=== PATIENT | female | born 1995 | race Caucasian/White ===

== ENCOUNTER 2025-02-17 08:50 | Emergency (ER) | payer OTHER, SELFPAY ==
--- NOTE | ~2025-02-17 | XR_ITS ---
XR thoracic spine 3V 02/17/2025 09:41 Indication: Thoracic spine pain Procedure: 3 views thoracic spine Comparison: No prior studies for comparison. Findings: There is dextroscoliosis of the thoracic spine measuring 20 degrees. Vertebral body heights are maintained. No fracture, subluxation or dislocation. There is calcified granuloma right lower lobe. Heart size normal. Pedicles intact. No paraspinal soft tissue abnormality. Impression: 1: Dextroscoliosis measuring 20 degrees centered at T8. Reviewed, dictated and finalized at location O. Impression: 1: Dextroscoliosis measuring 20 degrees centered at T8.
--- NOTE | ~2025-02-17 | XR_ITS ---
EXAMINATION: [id number] DATE: 02/17/2025 09:39 INDICATION: Posterior and anterior lower rib pain after adjusted by chiro TECHNIQUE: Frontal and lateral images of the chest were obtained. 3 images of the right ribs were obtained. COMPARISON: None available FINDINGS: No rib fractures identified. No pneumothorax. No focal infiltrates, pleural effusion or pulmonary edema. Cardiomediastinal silhouette is normal. Mild to moderate dextroconvex curvature of the thoracic spine. IMPRESSION: 1. No rib fracture or acute cardiopulmonary disease. If symptoms persist or worsen, consider a short-term follow-up study or additional imaging for further assessment. Reviewed, dictated and finalized at location Q. IMPRESSION: 1. No rib fracture or acute cardiopulmonary disease. If symptoms persist or worsen, consider a short-term follow-up study or additio nal imaging for further assessment.
[2025-02-17 08:59] VITALS: BP 112/78; PULSE 96; RESP 16; TEMP 36.1; O2SAT 100
--- OUTSIDE RECORDS SUMMARY | 2025-02-17 09:03 | XMS_ITS | Clinical Summary ---
Author Organization [facility] Address [address] [place] [address] Care Team Providers Care Gas Meter Installer Name Role Phone Bhavna Phan MD Primary Care Provider + Allergies Active Allergy Reactions Criticality Noted Date Comments Buspirone Angioedema High 12/31/2016 Lorazepam Other (See comments) High 12/31/2016 Hallucinations, talking out of her head. Medications famotidine (PEPCID) 20 mg tablet Take 1 tablet (20 mg total) by mouth 2 (two) times a day 30 tablet 9 Active ondansetron ODT (ZOFRAN-ODT) 4 mg disintegrating tablet Dissolve 1 tablet oral every 4 hours as needed for nausea or vomiting. 15 tablet 9 Active methocarbamoL (ROBAXIN) 500 mg tablet Take 1 tablet (500 mg total) by mouth 3 (three) times a day as needed for muscle spasms 30 tablet 5 Active Active Problems Problem Noted Date Diagnosed Date Epigastric pain 10/16/2018 Overview (10/16/2018): Added automatically from request for surgery Vomiting without nausea 10/16/2018 Overview (10/16/2018): Added automatically from request for surgery Encounters Date Type Department Care Team Description 02/10/2025 9:58 AM CDT - 02/10/2025 11:47 AM CDT Emergency [facility] Emergency Department [address] [place] [address] Edy Kay PA Back muscle spasm (Primary Dx); Muscle strain of upper back Discharge Disposition: Discharge to home or self care 02/10/2025 9:41 AM CDT - 02/10/2025 11:59 PM CDT Hospital Encounter [facility] Emergency, Room R Discharge Disposition: Discharge to home or self care from Last 3 Months Surgical History Surgery Date Site/Laterality Comments COLONOSCOPY UPPER GASTROINTESTINAL ENDOSCOPY Medical History Medical History Date Comments GERD (gastroesophageal reflux disease) Family History Medical History Relation Name Comments Colon polyps Father Colon cancer Father's Brother Relation Name Status Comments Father Alive Father's Brother (Age 57) Social History Tobacco Use Types Packs/Day Years Used Date Smoking Tobacco: Every Day Cigarettes 1 10 Smokeless Tobacco: Former Alcohol Use Standard Drinks/Week Comments Not Currently 0 (1 standard drink = 0.6 oz pur e alcohol) Personal Safety Answer Date Recorded Have you ever been in or are you currently in a harmful physical or emotional relationship or is someone making you feel afraid or unsafe? 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 Gender Identity Not on file Sexual Orientation Not on file Obstetrics History Last Filed Vital Signs Vital Sign Reading Time Taken Comments Blood Pressure 107/74 02/10/2025 11:30 AM CDT Pulse 59 02/10/2025 11:40 AM CDT Temperature 36.8 C (98.2 F) 02/10/2025 10:02 AM CDT Respiratory Rate 16 02/10/2025 10:02 AM CDT Oxygen Saturation 97% 02/10/2025 11:40 AM CDT Inhaled Oxygen Concentration - - Weight 59 kg (130 lb) 02/10/2025 10:02 AM CDT Height 170.2 cm (5' 7) 02/10/2025 10:02 AM CDT Body Mass Index 20.36 02/10/2025 10:02 AM CDT Plan of Treatment Health Maintenance Due Date Last Done Comments Cervical Cancer Screening 1993 Depression Screening 1993 Hepatitis C Screening 1993 Varicella Vaccines (1 of 2 - 13+ 2-dose series) 2006 Hepatitis B Screening 2011 Regular Well Visit/Exam 18-64 2011 Pneumococcal vaccine <65 (2 of 2 - PCV) 11/10/2013 0 11/10/2012 HPV Vaccines (1 - 3-dose SCDM series) 02/01/2020 DTaP/Tdap/Td Vaccine (3 - Td or Tdap) 11/10/2022, 11/01/2008 Influenza Vaccine (#1) 2025 03/21/2012 Insurance [employer] COVENTRY HMO/POS Care Teams Gas Meter Installer Relationship Specialty Start Date End Date Bhavna Phan MD [facility] [address] [address] PCP - General Family Medicine 02/10/25
--- OUTSIDE RECORDS SUMMARY | 2025-02-17 09:03 | XMS_ITS | Clinical Summary ---
Author Organization [facility] Address [address] [place] [id number] Care Team Providers Care Commercial Baker Helper Name Role Phone Unavailable Primary Care Provider Unavailabl e Social History Tobacco Use Types Packs/Day Years Used Date Smoking Tobacco: Never Assessed Comments Unknown Sex and Gender Information Value Date Recorded Sex Assigned at Not on file Legal Sex Female 11:37 AM CDT Gender Identity Not on file Sexual Orientation Not on file Plan of Treatment Health Maintenance Due Date Last Done Comments HPV VACCINES (1 - 3-dose series) 02/01/2008 HEPATITIS B VACCINES (1 of 3 - 19+ 3-dose series) 02/01/2012 HPV/Cotest (21-29) 2014 DTAP/TDAP/TD VACCINES (3 - Td or Tdap) 11/10/2022, 11/01/2008 CERVICAL CANCER SCREENING 2023 HPV/Cotest (30-65) 2023 PAP SMEAR 2023 INFLUENZA VACCINE (#1) 2025 03/21/2012 Insurance [employer] CHOICE POS II
--- NOTE | 2025-02-17 09:17 | ED.ABDPAIN ---
HPI - Abdominal Pain General Chief Complaint: Abdominal Pain Stated Complaint: right side/back pain Time Seen by Provider: 02/17/25 09:17 Source: patient Mode of arrival: ambulatory Limitations: no limitations History of Present Illness HPI narrative: 30 yo F presents with c/o pain to R ribs. feels like a pressure. Also reports some tenderness to mid back near shoulder blades. Denies injury. Test see a chiropractor for adjustments. Pain started a few days after her last adjustment. No ABD pain. Denies N/V. Afebrile. Taking ibuprofen for pain. All systems reviewed and negative except as noted above. Related Data Allergies Allergy/AdvReac Type Severity Reaction Status Date / Time buspirone Allergy Mild Rash Verified 02/17/25 09:18 lorazepam (From Ativan) Allergy Mild Rash Verified 02/17/25 09:18 PMFSH Comments At time of signature, agree with nursing past medical, surgical, social and family history. There is no relevant family history pertinent to the presenting complaint. Exam Narrative: GENERAL: This is a well-nourished, well-developed patient, in no apparent distress. HEAD: normocephalic, atraumatic. EYES: PERRL. Sclera clear/white. Vision is grossly intact. EARS: External ears normal NOSE: External nose normal NECK: Neck supple, non-tender without lymphadenopathy, masses or thyromegaly. CARDIOVASCULAR: Regular rate and rhythm without murmurs, gallops, or rubs. RESPIRATORY: Clear to auscultation. Breath sounds equal bilaterally. No wheezes, rales, or rhonchi. SKIN: warm, Dry, intact with no suspicious lesions or rash, good texture and turgor. NEURO: awake, alert, and oriented to person, place and time. There were no obvious focal neurologic abnormalities. EXTREMITIES: No joint tenderness, effusion, or edema noted. No calf tenderness. Negative Homans sign bilaterally. BACK: Tender T6, T7. No deformity. Course Course Level of Care: Express Care Visit Vital Signs Vital signs: Vital Signs Temperature 36.1 C L 02/17/25 08:59 Pulse Rate 96 02/17/25 08:59 Respiratory Rate 16 02/17/25 08:59 Blood Pressure 112/78 02/17/25 08:59 Pulse Oximetry 100 02/17/25 08:59 Oxygen Delivery Room Air 02/17/25 08:59 Temperature 36.1 C L 02/17/25 08:59 Pulse Rate 96 02/17/25 08:59 Respiratory Rate 16 02/17/25 08:59 Blood Pressure 112/78 02/17/25 08:59 Pulse Oximetry 100 02/17/25 08:59 Oxygen Delivery Room Air 02/17/25 08:59 Review MDM - Abdominal Pain MDM Narrative Medical decision making narrative: Discussed x-ray results with patient. Rib pain/pressure could be related to dextroscoliosis at T8. Recommend [id number] pain medications, follow-up with primary care physician for further evaluation. Patient agrees with plan of care. Imaging Data Radiologist's impression: ITS Impressions Ribs w/Chest X-Ray 02/17/25 09:44 IMPRESSION: 1. No rib fracture or acute cardiopulmonary disease. If symptoms persist or worsen, consider a short-term follow-up study or additional imaging for further assessment. Thoracic Spine X-Ray 02/17/25 09:45 Impression: 1: Dextroscoliosis measuring 20 degrees centered at T8. Discharge Plan Discharge Clinical Impression: Rib pain on right side, Dextroscoliosis of thoracic spine Patient Disposition: Home Condition: Stable Instructions: Thoracic Pain (ED) Additional Instructions: The x-ray of your thoracic spine shows dextroscoliosis. This could be causing pain to her right ribcage. Discuss this further with your primary care physician. Continue muscle relaxant and steroids prescribed by her primary care physician. Alternate between ice and heat. Do stretching exercises as tolerated. follow-up with your chiropractor at scheduled appointment today. Patient Language: Maltese Follow-up/Referrals: PHYSICIAN NOT ON STAFF,NONSTAFF [Primary Care Provider] Time of Disposition: 10:02
== END 2025-02-17 10:09 | disposition home or self-care (01) ==
PROVIDERS: Emergency Provider Nurse Practitioner Family
DX: R07.81 Pleurodynia (principal); M41.84 Other forms of scoliosis, thoracic region
CPT/HCPCS: 71101; 72072; 99204; G0463

== ENCOUNTER 2025-04-07 15:55 | Emergency (ER) | payer OTHER, SELFPAY ==
--- OUTSIDE RECORDS SUMMARY | 2014-02-09 16:42 | XMS_ITS | Continuity of Care Document ---
Author Organization [facility] Address [address] [place] [address] Phone Care Team Providers Care Weights And Measures Sealer Name Role Phone Giorgi Jones MD Unavailable Unavailable Allergies, Adverse Reactions, Alerts Substance Reaction Status Criticality No Known Allergies Active No Inform ation Medications Medication Instructions Dosage Effective Dates (start - stop) Status Comments No Drug Therapy Prescribed Advance Directives Directive Yes / No Effective Date File Name No Information Encounters Encounter Description Practice Location Reason(s) For Visit Diagnoses Date Provider Providers Copied on Encounter [facility], [address], [place], [place], [id number], tel:[phone] [facility] [place] No Information Karen Rand. [address], [facility] [address] [address], . tel:[phone] [facility], [address], [place], [address], tel:[phone] [facility] No Information Karen Rand. [address], [facility] [address], [place], [place], [facility], . tel:[employer] [phone] Referring Provider: Nilson Tierney, [address] [facility] [address], [place], [place], [facility]. tel:[phone] [facility], [address], [place], [place], [address], tel:[phone] [facility] Kidney stones Karen Rand. [address], [address], [place], [address], . tel:[phone] Family History Family Member Type Diagnosis Age At Onset No Information Payers Payer name Insurance type Covered libertarian ID Authoriza tion(s) No Information Social History Type Description Quantity Date Captured Comments Sex Female Smoking Status No Information Chief Complaint And Reason For Visit No Information Reason For Referral Reason For Referral No Information History Of Present Illness Encounter Date Complaint History Of Prese nt Illness No Information Functional Status Date Functional Assessmen t No Information Medications Administered Medication Instructions Dosage Effective Dates (start - stop) Status Comments No Drug Therapy Prescribed Instructions Date Instruction Additional Infor mation No Information Assessments Type Assessment Date No Information Patient Care Teams Name Effective Dates (start - stop) Status Members No Information
--- OUTSIDE RECORDS SUMMARY | 2014-02-09 16:42 | XMS_ITS | Continuity of Care Document ---
Author Organization [facility] Address [address] [place] [address] Phone Care Team Providers Care Harbor Tug Captain Name Role Phone Giorgi Jones MD Unavailable [...] Diagnoses Date Provider Providers Copied on Encounter [employer] [employer], [address], [place], [place], [address], tel:[phone] [facility] [place] No Information Karen Rand. [address] [address], [facility] [address] [place] [address], . tel:[phone] [employer], [address], [place], [address], tel:[phone] [facility] No Information Karen Rand. [address] [address], [facility] [address], [place], [place], [facility], . tel:[phone] Referring Provider: Nilson Tierney, [address] [facility] [address], [place], [place], [facility]. tel:[phone] [employer], [address], [place], [place], [address], tel:[phone] [facility] Kidney stones Karen Rand. [address] [address], [address], [place], [address], . tel:[phone] Family History Family Member Type Diagnosis Age At Onset No Information Payers Payer name Insurance type Covered green party ID Authoriza tion(s) No Information Social History [...]
--- OUTSIDE RECORDS SUMMARY | 2023-10-18 03:35 | XMS_ITS ---
Author Organization [facility]ILL[facility]AC[facility] [employer] Address [address] [place] [address] Care Team Providers Care Brick Kiln Worker Name Role Phone Bhavna Phan Primary Care Provider REASON FOR VISIT Outreach - Successful Encounters Encounter Location Date Provider Diagnosis [address] [address] 10/18/2023 Bhavna Phan PLAN OF TREATMENT No Information Progress Notes * ANDRADE, AnkitaDOB:[birth year] (28 yo F)Acc No.[id number]:10/18/2023 Patient: Ankita ANDRADE :1995 Age:28 Y Sex:Female Address:[address] [place] [address] * true * Date:
--- OUTSIDE RECORDS SUMMARY | 2023-10-24 01:49 | XMS_ITS ---
Author Organization [facility]ILLING FACILITY [employer] [facility] Address [address] [place] [address] Care Team Providers Care Welder Production Line Gas Name Role Phone Bhavna Phan Primary Care Provider [phone] REASON FOR VISIT PRTL: Physical Encounters Encounter Location Date Provider Diagnosis [address] [address] 10/24/2023 Bhavna Phan PLAN OF TREATMENT No Information Progress Notes * Ankita ANDRADEDOB:[birth year] (28 yo F)Acc No.[id number]:10/24/2023 Patient: Ankita ANDRADE :1995 Age:28 Y Sex:Female Address:[facility] [place] [address] Subjective: * Chief Complaints: * PRTL: Physical * Medical History: * Surgical History: * Hospitalization/Major Diagno stic Procedure: * Medications: Objective: Assessment: Plan: * Treatment: * Procedure Codes: * true * Date:
--- OUTSIDE RECORDS SUMMARY | 2023-12-18 06:54 | XMS_ITS ---
Author Organization [facility]ILL[facility]AC[facility] [facility] Address [address] [place] [address] Care Team Providers Care Production Lapping Machine Operator Name Role Phone Bhavna Phan Primary Care Provider REASON FOR VISIT PRTL: Ear ache, sore throat, stuffiness Encounters Encounter Location Date Provider Diagnosis [facility] [address] [place] [address] 12/18/2023 Bhavna Phan PLAN OF TREATMENT No Information Progress Notes * Ankita ANDRADEDOB:[birth year] (28 yo F)Acc No.[id number]:12/18/2023 Patient: Ankita ANDRADE :1995 Age:28 Y Sex:Female Address:[facility] [place] [address] Subjective: * Chief Complaints: * PRTL: Ear ache, sore throat, stuffiness * Medical History: * Surgical History: * Hospitalization/Major Diagno stic Procedure: * Medications: Objective: Assessment: Plan: * Treatment: * Procedure Codes: * true * Date:
--- OUTSIDE RECORDS SUMMARY | 2024-03-02 09:00 | XMS_ITS ---
Author Organization BILLING FACILITY [employer] Address [address] [place] [address] Care Team Providers Care Detention Sergeant Name Role Phone Bhavna Phan Primary Care Provider ALLERGIES Allergen (clinical drug ingredient) Drug/Non Drug Allergy documented on EMR Reaction Allergy Type Onset Date Status lorazepam Ativan hallucinations Drug Allergy Ac tive BuSpar face swelling Drug Allergy Act naye RESULTS Component Value Reference Range Notes Chlamydia trachomatis, Neiss eria gonorrhoeae, and Trichomonas vaginalis, ABHIJIT ([id number]) Reviewed date:03/06/2024 01:12:12 PM Interpretation: Performing Lab:[facility], [address] [place] [id number], Phone - [phone], Director - MDBejuan Notes/Report: Chlamydia by ABHIJIT Negative Negative Gonococcus by ABHIJIT Negative Negative Trich vag by ABHIJIT Negative Negative Pap age-based (with age-base d GC/CT screen) ([id number]) Reviewed date:03/06/2024 01:12:12 PM Interpretation: Performing Lab:[facility], [address] [place] [id number], Phone - [phone], Director - MDBendre Notes/Report: Clinical Information:[id number] Clinical Information:[id number] Age Gdln ACOG Testing 30-65 DIAGNOSIS: NEGATIVE FOR IN TRAEPITHELIAL LESION OR MALIGNANCY. Specimen adequacy: Satisfactory for evaluation. Endocervical and/or squamous metaplastic cells (endocervical component) are present. Clinician provided ICD10: Z1 2.4 Performed by: Bhavna Gibson , Fiber Locking Supervisor (ASCP) . . Note: The Pap smear is a screening test designed to aid in the detection of premalignant and malignant conditions of the uterine cervix. It is not a diagnostic procedure and should not be used as the sole means of detecting cervical cancer. Both false-positive and false-negative reports do occur. . Test Methodology: This liquid based ThinPrep(R) pap test was screened with the use of an image guided system. HPV Aptima Negative Negative This nucleic acid amplification test detects fourteen high-risk HPV types (16,18,31,33,35,39,45,51,52,56,5 8,59,66,68) without differentiation. HPV Genotype Reflex Criteria not met, HPV Genotype not performed. REASON FOR VISIT dysuria MEDICATIONS Medication SIG (Take, Route, Frequency, Duration) Notes Start Date End Date Status valACYclovir HCl 1 GM 2 tablets Orally e very 12 hours for 1 day 03/28/2022 Not-Taking Amoxicillin 500 MG 1 capsule Orally tuyet ry 8 hrs for 10 days 06/25/2023 Active SOCIAL HISTORY Tobacco Use: Social History Observation Description Date Details (start date - stop date) Current Smoker 07/03/2009 - NA Sex Assigned At : Social History Observation Description Sex Assigned At Unknown Tobacco Use/Smoking Question Answer Notes Are you a current user When did you start using? 07/03/2009 How often do you smoke cigarettes? every day How many cigarettes a day do you smoke? 11-20 How soon after you wake up do you smoke your fir st cigarette? 6-30 minutes Are you interested in quitting? Not ready to colby t Alcohol Questionnaire Question Answer Notes Did you have a drink contain ing alcohol in the past year? Yes How often did you have a dri nk containing alcohol in the past year? 2 to 4 times a month (2 points) How many drinks did you have on a typical day when you were drinking in the past year? 3 or 4 drinks (1 point) How often did you have 6 or more drinks on one occasion in the past year? Never (0 point) Points 3 Interpretation Positive PROBLEMS Problem Type ICD Code Onset Dates Problem Status W/U Status Risk SNOMED Code Notes Problem Exposure to asbestos (Z77.090) Active confirmed 128522384 Problem Pulmonary nodule (R91.1) Active confirmed 319491138 Problem Endometriosis (N80.9) Active confirmed 676459890 VITAL SIGNS Temperature 98.9 degrees Fahrenheit 03/02/20 24 Heart Rate 84 /min 03/02/2024 Oximetry 99% % 03/02/2024 Blood pressure systolic 102 mm Hg 03/02/20 24 Blood pressure diastolic 68 mm Hg 024 Respiratory Rate 20 /min 03/02/2024 Weight 140.0 lbs 03/02/2024 Height 67 in 03/02/2024 BMI 21.92 03/02/2024 Weight-kg 63.5 kg 03/02/2024 Encounters Encounter Location Date Provider Diagnosis [facility] [address] [place] [address] 03/02/2024 Bhavna Phan Dysuria R30.0 ; Well woman exam with routine gynecological exam Z01.419 ; Screening for cervical cancer Z12.4 ; LLQ abdominal pain R10.32 ; Endometriosis N80.9 ; Pulmonary nodule R91.1 and Exposure to asbestos Z77.090 ASSESSMENTS Encounter Date Diagnosis Assessment Notes Treatment Notes Treatment Clinical Notes Section Notes 03/02/2024 Dysuria (ICD-10 - R30.0) 03/02/2024 Well woman exam with routine gynecological exam (ICD-10 - Z01.419) Routine age appropriate anticipatory guidance was given, including discussion of recommended screening tests and immunizations. I will call her with pap and STD results. She declined labs for HIV, Hep C, syphilis testing but can return for labs if she changes her mind. She will get a pelvic ultrasound but I discussed signs of worsening or acute symptoms and when it would be appropriate to call me versus going to the emergency room in the interim. I recommend a CT of chest to follow up the pulmonary nodule seen incidentally on CT abdomen from ER and we'll get this arranged as well. She voiced understanding and agreement with plan. Questions were answered to satisfaction. 03/02/2024 Screening for cervical cancer (ICD-10 - Z12.4) 03/02/2024 LLQ abdominal pain (ICD-10 - R10.32) 03/02/2024 Endometriosis (ICD-10 - N80.9) 03/02/2024 Pulmonary nodule (ICD-10 - R91.1) 03/02/2024 Exposure to asbestos (ICD-10 - Z77.090) PLAN OF TREATMENT No Information Progress Notes * Ankita ANDRADEDOB:[birth year] (29 yo F)Acc No.[id number]:03/02/2024 Patient: Ankita ANDRADE Provider: Bhavna Phan MD :1995 Age:29 Y Sex:Female Date:03/02/2024 Address:[facility] [address] [place] [address] Subjective: * Chief Complaints: * Dysuria * HPI: Depression/Anxiety Screening: Here with mild dysuria for the past few days and pain with intercourse. She denies vaginal discharge, fever, abdominal or flank pain. Her cycle is always irregular and she states she was told years ago she has endometriosis. She continues to have dysmenorrhea but does not want OCP as she had side effects from this in the past. She is overdue for Pap smear. She is okay with an accidental . She denies any concerns for STD from her standpoint, but is okay with testing. She has had ER visits in the past for abdominal pain and had a CT scan of her abdomen in 2018 that I can see in [employer] that incidentally noted a 7 mm pulmonary nodule in the right lower lobe. She states she was never informed of this. 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 PHQ-2 (2015 Edition)* Little interest or pleasure in doing things? Not at all Feeling down, depressed or hopeless? Not at all Total score: 0 Depression Screening: CHUCKIE-7 (2018 Edition) Feeling nervous, anxious, or on edge Not at all Not being able to stop or control worrying Not at all Worrying too much about different things Not at all Trouble relaxing Not at all Being so restless that it is hard to sit still Not at all Becoming easily annoyed or irritable Not at all Feeling afraid as if something awful might happen Not at all Total CHUCKIE-7 Score 0 Interpretation of Total (0 to 4) No Anxiety * ROS: General/Constitutional: General as per HPI. * Medical History: * OB History: Total pregnancies 2. Total living children 1. Miscarriage(s) 1, at age 13. # 1: normal spontaneous vaginal delivery () 2012, female, term. * Surgical History: colonoscopy 10/10/2017colonoscopy 03/17/2010endoscopy small bowel w/ileum 03/17/2010pr closed rx nose fracture 2005 * Hospitalization/Major Diagno stic Procedure: stomach issues kept for a week fluid sac on stomach 2015 * Social History: Tobacco Use: Tobacco Use/Smoking Are you a current user When did you start using? 07/03/2009 How often do you smoke cigarettes? every day How many cigarettes a day do you smoke? 11-20 How soon after you wake up do you smoke your first cigarette? 6-30 minutes Are you interested in quitting? Not ready to quit Habits (drugs/alcohol/caffeine): Alcohol Questionnaire Did you have a drink containing alcohol in the past year? Yes How often did you have a drink containing alcohol in the past year? 2 to 4 times a month (2 points) How many drinks did you have on a typical day when you were drinking in the past year? 3 or 4 drinks (1 point) How often did you have 6 or more drinks on one occasion in the past year? Never (0 point) Points 3 Interpretation Positive * Medications: TakingAmoxicillin 500 MG Capsule 1 capsule Orally every 8 hrs Taking Amoxicillin 500 MG Capsule 1 capsule Orally every 8 hrs Not-TakingvalACYclovir HCl 1 GM Tablet 2 tablets Orally every 12 hours Not-Taking valACYclovir HCl 1 GM Tablet 2 tablets Orally every 12 hours * Allergies: BuSpar: face swelling - Allergy - Criticality HighAtivan: hallucinations - Side Effects - Criticality Highno[Allergies Verified] Objective: * Vitals: Temp:98.9F, HR:84, Oxygen sat:99%, BP:102/68mm Hg, RR:20/min, Wt:140.0lbs, Wt Chg: -8 lbs, Wt Chg %: -5.41%, Ht:67in, BMI:21.92, .LMP:01/24/2024, Wt-k.5 kg. * Examination: General Examination *: GENERAL APPEARANCE: alert and oriented, no acute distress, pleasant, well nourished. NECK/THYROID: neck supple, no thyromegaly. LYMPH NODES: no anterior cervical adenopathy. HEART: S1/S2 normal, regular rate and rhythm, no murmurs, no rubs, no gallops. LUNGS: clear to auscultation, good air movement, no respiratory distress. ABDOMEN: soft, non-tender, normal bowel sounds, non-distended, no CVA or suprapubic tenderness. FEMALE GENITOURINARY: external genitalia unremarkable, vaginal mucosa normal, cervix without lesions/non-tender, bimanual exam unremarkable. SKIN: Warm and dry, good turgor, no rashes, no suspicious lesions. EXTREMITIES: no edema, capillary refill normal. PERIPHERAL PULSES: 2+ throughout. Assessment: * Assessment: 1. Well woman exam with routine gynecological exam - Z01.419 (Primary) 2. Dysuria - R30.0 3. Screening for cervical cancer - Z12.4 4. LLQ abdominal pain - R10.32 5. Endometriosis - N80.9 6. Pulmonary nodule - R91.1 7. Exposure to asbestos - Z77.090 Plan: * Treatment: 2. Dysuria LAB: Chlamydia trachomatis, Neisseria gonorrhoeae, and Trichomonas vaginalis, ABHIJIT ([id number]) (Collection Date & Time - 03/02/2024) Value Reference Range Chlamydia by ABHIJIT Negative Negative - * Gonococcus by ABHIJIT Negative Negative - * Trich vag by ABHIJIT Negative Negative - * I spoke with the patient abo ut her test results. She is now 100% pain-free and plans on canceling the ultrasound, currently scheduled for Saturday. She will call to cancel this and will check on the scheduling and approval for the CT of her chest as I recommend she still get this. She voiced understanding and agreement with plan.This lab was reviewed by Bhavna Phan on 03/06/2024 at 13:12 PM MDT ?LAB: Urinalysis, Routine ([id number]) (Ordered for 03/02/2024) (Collection Date & Time - 03/02/2024)* Value Reference Range WBC neg * Appearance yellow * Bilirubin neg * Glucose neg * Ketones neg * Nitrite, Urine 0.2 * Occult Blood neg * pH 6.5 * Protein neg * Specific [place] 1.010 * Urine-Color yellow ?LAB: Test, Urine (Ordered for 03/02/2024) (Collection Date & Time - 03/02/2024)??Negative* Value Reference Manager Intensive Care Unit TS 3.??Screening for cervical cancer?LAB: Pap age-based (with age-based GC/CT screen) () (Collection Date & Time - 03/02/2024)* Value Reference Range HPV Aptima Negative Negative - * . . - * Age Gdln ACOG Testing 30-65 - * I spoke with the patient abo ut her test results. She is now 100% pain-free and plans on canceling the ultrasound, currently scheduled for Saturday. She will call to cancel this and will check on the scheduling and approval for the CT of her chest as I recommend she still get this. She voiced understanding and agreement with plan.This lab was reviewed by Bhavna Phan on 03/06/2024 at 13:12 PM MDT 4.??LLQ abdominal pain?Imaging: US PELVIC/TRANSVAGINAL ([id number])5.??Endometriosis?Imaging: US PELVIC/TRANSVAGINAL ([id number])6.??Pulmonary nodule?Imaging: CT CHEST WITHOUT CONTRAST* [facility] 7.??Exposure to asbestos?Imaging: CT CHEST WITHOUT CONTRAST* [facility] * Procedure Codes: Q0091 Screening Papanicolaou smear; obtaining, preparing, and conveyance of cervical or vaginal smear to laboratory * Billing Information: * Visit Code: [id number] Prev visit est age 18 - 37 comprehensive exam. * Procedure Codes: Q0091 Screening Papanicolaou smear; obtaining, preparing, and conveyance of cervical or vaginal smear to laboratory. * Sign off status: Completed true * Provider: Bhavna Phan MD Date: 03/02/2024 History and Physical Notes * HPI (History of Present Illness) Category Sub-Category Detail Notes Category Not es Depression/Anxiety Screening PHQ-2 (2015 Edition)* Little interest or pleasure in doing things?: Not at all Feeling down, depressed or hopeless?: No t at all Total score:: 0 Depression Screening CHUCKIE-7 (2018 Edition) Feelin g nervous, anxious, or on edge: Not at all Not being able to stop or control worryi ng: Not at all Worrying too much about different things : Not at all Trouble relaxing: Not at all Being so restless that it is hard to sit still: Not at all Becoming easily annoyed or irritable: No t at all Feeling afraid as if something awful jose ht happen: Not at all Total CHUCKIE-7 Score: 0 Interpretation of Total: (0 to 4) No Anx iety Examination Category Sub-Category Detail Notes Category Not es General Examination * GENERAL APPEARANCE: alert and oriented, no acute distress, pleasant, well nourished NECK/THYROID: neck supple, no thyr omegaly LYMPH NODES: no anterior cervical adenopathy SKIN: Warm and dry, good t urgor, no rashes, no suspicious lesions HEART: S1/S2 normal, regula r rate and rhythm, no murmurs, no rubs, no gallops LUNGS: clear to auscultatio n, good air movement, no respiratory distress ABDOMEN: soft, non-tender, no rmal bowel sounds, non-distended, no CVA or suprapubic tenderness FEMALE GENITOURINARY: external genitalia unremarkable, vaginal mucosa normal, cervix without lesions/non-tender, bimanual exam unremarkable EXTREMITIES: no edema, capillary refill normal PERIPHERAL PULSES: 2+ throughout
[2025-04-07 16:00] VITALS: BP 118/82; PULSE 101; RESP 16; TEMP 37.1; O2SAT 99
--- NOTE | 2025-04-07 16:35 | ED.LOWEXIN ---
HPI - Extremity Injury (Lower) General Chief Complaint: Extremity Injury, Lower Stated Complaint: Toe Injury Time Seen by Provider: 04/07/25 16:35 Source: patient Mode of arrival: ambulatory Limitations: no limitations History of Present Illness HPI Narrative: 30 year old female who presents to [facility] care with complaints of playing with dog on Saturday evening with Darnell ball and it hit her right great toe. She reports that she has some swelling and discomfort to the toe around nail bed and sides of toe and noted today that she has red streak running up her foot. Patient reports that tissue around the nail bed is tender and to the sides of her right great toe, patient has gel nail chilean to toenail. Patient reports that she has been applying ice to her toe and has been taking Ibuprofen for her discomfort. MD complaint: other (toe pain and swelling) Onset (ago): day(s) (2 days) Injury: Right: toes (right great toe) Type of Injury: blunt Place: street/outdoors Severity: moderate Exacerbating factors: movement and palpation Treatments prior to arrival: cold therapy and NSAIDS Related Data Allergies Allergy/AdvReac Type Severity Reaction Status Date / Time buspirone Allergy Mild Rash Verified 02/17/25 09:18 lorazepam (From Ativan) Allergy Mild Rash Verified 02/17/25 09:18 Review of Systems Review of Systems: CONSTITUTIONAL: Denies fever, chills, or sweats. EYES: Denies visual changes, redness, or discharge. ENT: Denies rhinorrhea, congestion, sore throat, or otalgia. CARDIOVASCULAR: Denies chest pain, palpitations, or edema. RESPIRATORY: Denies cough or dyspnea. GASTROINTESTINAL: Denies abdominal pain, nausea, vomiting, or diarrhea. GENITOURINARY: Denies dysuria or hematuria. SKIN: Denies rash or itching. reports red streak noted up her right foot above great toe MUSCULOSKELETAL: Denies back pain, positive for some swelling and redness to right great toe around nail bed, or myalgia. NEUROLOGIC: Denies headache, numbness, or weakness. PSYCHIATRIC: Denies anxiety or depression. All systems reviewed & are unremarkable except as noted in HPI and below PMFSH Past Medical History Medical History (Updated 04/08/25 @ 10:17 by Brittney Sharpe NP) Scoliosis Social History Social History (Updated 10/16/25 @ 10:20 by Brittney Sharpe NP) Gender identity (if verbalized by the patient): Female Comments At time of signature, agree with nursing past medical, surgical, social and family history. There is no relevant family history pertinent to the presenting complaint Exam Narrative: GENERAL: Well-appearing, well-nourished, and in no acute distress. HEAD: Normocephalic, atraumatic. EYES: PERRLA and EOMI. ENT: Nares clear, no rhinorrhea or epistaxis. Mucous membranes moist.TM's normal throat pink with no redness or swelling NECK: Supple. no lymphadenopathy CHEST: Clear to auscultation. No respiratory distress. no cough noted SAO2 99% on room air HEART: Regular rate and rhythm. No murmur heard. Normal peripheral pulses. ABDOMEN: Soft, nontender, nondistended, normal active bowel sounds. EXTREMITIES: Normal range of motion. No edema.Exception noted to some redness and swelling around right great toe nail bed and to sides of toe, full mobility of toe, sensation and circulation is intact. Patient does have palpable discomfort to tissue with a red streak running up foot above great to into foot, denies any fevers, chills or sweats. SKIN: Warm, dry, no rash. swelling and redness right great toe from injury around nail bed and sides of toe with red streak noted up into foot, no drainage or any pustules or vesicles noted, no fluctuation of tissues NEURO: No focal deficits. Alert and oriented x3. Course Course Emergency Course: Patient is aware of diagnosis, understands and agrees to treatment plan.? Anticipatory guidance given.? Patient agrees to follow-up as directed and is aware of reasons to seek care at the emergency department. Portions of this record may have been created with voice recognition software Level of Care: Express Care Visit Vital Signs Vital signs: Vital Signs Temperature 37.1 C 04/07/25 16:00 Pulse Rate 101 H 04/07/25 16:00 Respiratory Rate 16 04/07/25 16:00 Blood Pressure 118/82 04/07/25 16:00 Pulse Oximetry 99 04/07/25 16:00 Oxygen Delivery Room Air 04/07/25 16:00 Temperature 37.1 C 04/07/25 16:00 Pulse Rate 101 H 04/07/25 16:00 Respiratory Rate 16 04/07/25 16:00 Blood Pressure 118/82 04/07/25 16:00 Pulse Oximetry 99 04/07/25 16:00 Oxygen Delivery Room Air 04/07/25 16:00 Reviewed MDM - Extremity Injury (Lower) Differential Diagnosis Differential diagnosis: Likely other (contusion of right great toe, pain right great toe, cellulitis right great toe) Medical Records Attestation: I reviewed the patient's medical records. Lab Data Attestation: I reviewed the patient's lab results. Critical Care Time Critical Care Time Critical Care Time: No Discharge Plan Discharge Clinical Impression: Cellulitis of great toe, right Patient Disposition: Home Condition: Stable Instructions: Antibiotic Form, Cellulitis (ED) Additional Instructions: Soak right great toe in warm soapy water rinse apply mupirocin ointment twice daily watch for increasing infection--redness, swelling, drainage Tylenol or ibuprofen for any fever pain for package direction follow up with PCP in 7-10 days for a wound check recheck if develop fever, chills, increasing symptom Go to the ER if your symptoms become worse of if ANY new symptoms develop If your symptoms persist, change or worsen significantly before you can contact your personal physician then please, without delay, go to the emergency department for further evaluation. Follow-up with PCP in 7-10 days or sooner if needed Antibiotic as prescribed complete all doses Patient Language: Qatari Prescriptions: New cephalexin 500 mg capsule 500 mg PO Q8H Qty: 21 0RF mupirocin [Centany] 2 % ointment 1 applic topical BID Qty: 22 0RF Follow-up/Referrals: UNKNOWN,DOCTOR [Primary Care Provider] Time of Disposition: 16:45 Quality Warren Coma Scale Eyes: Open Verbal: Oriented and Alert Motor: Follows Commands Warren Coma Total Score: 15
--- OUTSIDE RECORDS SUMMARY | 2025-04-07 17:36 | XMS_ITS | Encounter Summary ---
Author Organization [facility] Address [address] [address] Care Team Providers Care Block Feeder Name Role Phone Lily Mukherjee DO Unavailable Braden Goldstein MD Primary Care Provider Pat Hall AUTOMOTIVE PROJECT ENGINEER-PROJECTION CAMERA OPERATOR Unavailable [phone] Xiao Castano AUTOMOTIVE PROJECT ENGINEER-PROJECTION CAMERA OPERATOR Unavailable [phone] Braden Goldstein MD Unavailable [phone] Encounter Details Date Type Department Care Team (Late st Contact Info) Description 03/24/2012 [facility] Outpatient Visit EXTERNAL NON-[facility] [place] [address] [facility] [address] [place] [id number] Social History Tobacco Use Types Packs/Day Years Used Date Smoking Tobacco: Every Day Cigarettes 0.3 2 Smokeless Tobacco: Never Alcohol Use Standard Drinks/Week Comments No 0 (1 standard drink = 0.6 oz pur e alcohol) Comments Yes Sex and Gender Information Value Date Recorded Sex Assigned at Not on file 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 Gender Identity Female 09/09/2018 11:28 AM CDT Sexual Orientation Not on file documented as of this encounter Plan of Treatment Not on file documented as of this encounter Visit Diagnoses Not on filedocumented in this encounter Care Teams Block Feeder Relationship Specialty [place] [address] [facility] [address] [place] [address] PCP - OBGYN 12/28/08 Braden Goldstein MD [address] [facility] [address] [place] [address] PCP - General Family Medicine 10/15/18 Pat Hall, AUTOMOTIVE PROJECT ENGINEER-PROJECTION CAMERA OPERATOR [address] [address] PCP - Attributed-[facility] Medicaid [place] 06/01/21 02/08/23 Xiao Castano AUTOMOTIVE PROJECT ENGINEER-PROJECTION CAMERA OPERATOR [address] [facility] [address] [place] [address] PCP - Attributed-Exclusive Choice 12/07/16 12/21/18 Braden Goldstein MD [address] [facility] [address] [place] [address] PCP - Attributed-Exclusive Choice 12/22/18 04/20/19 documented as of this encounter
--- OUTSIDE RECORDS SUMMARY | 2025-04-07 17:37 | XMS_ITS | Clinical Summary ---
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
--- OUTSIDE RECORDS SUMMARY | 2025-04-07 17:37 | XMS_ITS | Clinical Summary ---
Author Organization [facility] Address [address] [place] [id number] Care Team Providers Care Supervisor Painting Department Name Role Phone Unavailable Primary Care Provider Unavailabl e Social History Tobacco Use Types Packs/Day Years Used Date Smoking Tobacco: Never Assessed Comments Unknown Sex and Gender Information Value Date Recorded Sex Assigned at Not on file Legal Sex Female 11:37 AM CDT Gender Identity Not on file Sexual Orientation Not on file Plan of Treatment Health Maintenance Due Date Last Done Comments HEPATITIS B VACCINES (1 of 3 - 19+ 3-dose series) 02/01/2012 HPV/Cotest (21-29) 2014 HPV VACCINES (1 - 3-dose SCDM series) 02/01/2020 DTAP/TDAP/TD VACCINES (3 - Td or Tdap) 11/10/2022, 11/01/2008 CERVICAL CANCER SCREENING 2023 HPV/Cotest (30-65) 2023 PAP SMEAR 2023 INFLUENZA VACCINE (#1) 2025 03/21/2012 Insurance [employer] CHOICE POS II
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
--- OUTSIDE RECORDS SUMMARY | 2025-04-07 17:37 | XMS_ITS | Patient Health Record ---
Author Organization [facility] Address [address] [place] [address] Care Team Providers Care Toy Assembly Supervisor Name Role Phone Karri Phanssica Primary Care Provider [phone] ALLERGIES Allergen (clinical drug ingredient) Drug/Non Drug Allergy documented on EMR Reaction Allergy Type Onset Date Status lorazepam Ativan hallucinations Drug Allergy Ac tive BuSpar face swelling Drug Allergy Act naye REASON FOR REFERRAL No Information MEDICATIONS Medication SIG (Take, Route, Frequency, Duration) Notes Start Date End Date Status valACYclovir HCl 1 GM 2 tablets Orally e very 12 hours for 1 day 03/28/2022 Not-Taking Amoxicillin 500 MG 1 capsule Orally tuyet ry 8 hrs for 10 days 06/25/2023 Active IMMUNIZATIONS Vaccine Route Administration Date Status Comme nts Pneumococcal 23-Valent (VFC) Unknown 11/10/2012 Adminis tered TdaP (adult) Unknown 11/10/2012 Administered SOCIAL HISTORY Tobacco Use: Social History Observation [...] W/U Status Risk SNOMED Code Notes Problem Endometriosis (N80.9) Active confirmed 822629400 Problem Pulmonary nodule (R91.1) Active confirmed 437510176 Problem Exposure to asbestos (Z77.090) Active confirmed 736212419 PLAN OF TREATMENT No Information Insurance Providers Payer Name Payer Address Payer Phone Subscriber Number Group Number Insured Name Patient Relationship to Insured Coverage Start Date Coverage End Date [employer] [facility] [address] [place] [phone] [id number] Ankita Bazan Self - patient is the insured MEDICAL (GENERAL) HISTORY Medical History History ICD Code endometriosis Surgical History Surgery Date(Month/Year) pr closed rx nose fracture 2005 endoscopy small bowel w/ileum 03/17/2010 colonoscopy 03/17/2010 colonoscopy 10/10/2017 Hospitalization History Reason Date(Month/Year) stomach issues kept for a week fluid sa c on stomach 2015
== END 2025-04-07 16:51 | disposition home or self-care (01) ==
PROVIDERS: Emergency Provider Registered Nurse
DX: L03.031 Cellulitis of right toe (principal); M41.9 Scoliosis, unspecified
CPT/HCPCS: 99213; G0463